=== PATIENT | female | born 1990 ===

== ENCOUNTER → 2020-09-04 | Outpatient (CLI) | payer OTHER | END | disposition home or self-care (01) | LOC: PRENATAL 10:00 | PROVIDERS: ATTEND Obstetrics & Gynecology Maternal & Fetal Medicine | DX: O35.0XX1 Maternal care for (suspected) central nervous system malformation in fetus, fetus 1 (principal); O35.3XX1 Maternal care for (suspected) damage to fetus from viral disease in mother, fetus 1; O98.512 Other viral diseases complicating pregnancy, second trimester; O99.891 Other specified diseases and conditions complicating pregnancy; Z36.89 Encounter for other specified antenatal screening; Z3A.18 18 weeks gestation of pregnancy ==

== ENCOUNTER 2020-11-12 22:54 | Outpatient (CLI) | payer OTHER ==
[2020-11-13] MEDS ORDERED: PRENATAL TABLE1 EAC1 PO (00:14)
[2020-11-13] MEDS ORDERED: PROBIOTIC1 EAC2 PO (00:14)
== END 2020-11-13 14:14 | disposition home or self-care (01) ==
LOC: OBS/DEL 22:54
PROVIDERS: ATTEND Obstetrics & Gynecology
DX: O26.843 Uterine size-date discrepancy, third trimester (principal); O26.853 Spotting complicating pregnancy, third trimester; O26.893 Other specified pregnancy related conditions, third trimester; R10.2 Pelvic and perineal pain; Z3A.28 28 weeks gestation of pregnancy

== ENCOUNTER 2021-01-28 19:44 | Inpatient (IN) | payer OTHER ==
[~2021-01-28] VITALS: Ht 162.6 cm; Wt 91.2 kg
[~2021-01-28 19:44] MED LIST: PRENATAL TABLE1 EAC1 PO; PROBIOTIC1 EAC2 PO
== END 2021-01-31 12:52 | disposition home or self-care (01) | DRG 807 ==
LOC: OB/GYN 19:44 → LDR 19:44 → OB/GYN 01-29 19:55
PROVIDERS: ADMIT Obstetrics & Gynecology; ATTEND Obstetrics & Gynecology
PROC: 10E0XZZ Delivery of Products of Conception, External Approach (ICD-10-PCS; principal; 2021-01-28)
PROC: 3E0P7VZ Introduction of Hormone into Female Reproductive, Via Natural or Artificial Opening (ICD-10-PCS; 2021-01-28)
PROC: 4A1HXFZ Monitoring of Products of Conception, Cardiac Rhythm, External Approach (ICD-10-PCS; 2021-01-28)
DX: O80 Encounter for full-term uncomplicated delivery (principal); Z37.0 Single live birth; Z3A.39 39 weeks gestation of pregnancy; Z20.822 Contact with and (suspected) exposure to COVID-19